=== PATIENT | male | born 1985 | race American Indian/Alaskan Native ===

== ENCOUNTER 2021-02-02 02:09 | Emergency (ER) | payer SELFPAY ==
[2021-02-02 02:20] VITALS: BP 127/75
[2021-02-02] MEDS ORDERED: predniSONE 20 MG TAB PO ONE (03:51)
[2021-02-02] MEDS ORDERED: IPRATROPIUM/ALBUTEROL SULFATE 3 ML AMPUL.NEB IH ONE (03:51)
[2021-02-02] MEDS ORDERED: CETIRIZINE 10 MG TAB PO ONE (03:51)
--- NOTE | 2021-02-02 03:57 | Emergency Department Report ---
ED Shortness of Breath HPI - General Chief Complaint: Dyspnea/Respdistress Stated Complaint: WILLA Time Seen by Provider: 02/02/21 03:47 Source: patient Mode of arrival: Ambulatory Limitations: No Limitations - History of Present Illness Initial Comments: CC: "This pollen has been messing with me. I can not breathe at night." HPI: This is a 35 yo male with hx of marijuana use and childhood "bronchitis" who presents with wheezing, shortness of breath and cough for 2 days. Worse at night. Flonase and OTC sinus medication gave only mild relief. He does smoke marijuana. He denies fever, sputum production, cough. He just feels tight in his chest when he attempts to breathe. MD Complaint: shortness of breath, cough, "asthma attack" -: Gradual, days(s) (2 days) Severity: mild Consistency: intermittent Improves With: nothing Worsens With: nothing Known History Of: other ("bronchitis") Context: other (marijuana inhalation) Associated Symptoms: cough, other (wheezing) Treatments Prior to Arrival: other (OTC medications) - Related Data Previous Rx's Medication Instructions Recorded Last Taken Type Albuterol Mdi (or & Nicu Only) 2 puff IH QID PRN #8.5 gram 02/02/21 Unknown Rx [ProAir HFA Inhaler] Cetirizine HCl [ZyrTEC 10mg cap] 10 mg PO DAILY 30 Days #30 capsule 02/02/21 Unknown Rx Fluticasone [Flonase] 1 spray NS QDAY 30 Days #1 bottle 02/02/21 Unknown Rx Prednisone [predniSONE 10 mg 10 mg PO .TAPER #1 tab.ds.pk 02/02/21 Unknown Rx (6-Day Pack, 21 Tabs)] ED Review of Systems ROS: Stated complaint: WILLA Other details as noted in HPI Comment: All other systems reviewed and negative Constitutional: denies: chills, fever, malaise Respiratory: cough, shortness of breath, wheezing Cardiovascular: denies: chest pain Gastrointestinal: denies: abdominal pain, nausea, vomiting ED Past Medical Hx - Past Medical History Previous Medical History?: Yes Additional medical history: Bronchitis - Surgical History Past Surgical History?: No - Social History Smoking Status: Current Some Day Smoker Substance Use Type: Marijuana - Medications Home Medications: Home Medications Medication Instructions Recorded Confirmed Last Taken Type Albuterol Mdi (or & Nicu Only) 2 puff IH QID PRN #8.5 gram 02/02/21 Unknown Rx [ProAir HFA Inhaler] Cetirizine HCl [ZyrTEC 10mg cap] 10 mg PO DAILY 30 Days #30 capsule 02/02/21 Unknown Rx Fluticasone [Flonase] 1 spray NS QDAY 30 Days #1 bottle 02/02/21 Unknown Rx Prednisone [predniSONE 10 mg 10 mg PO .TAPER #1 tab.ds.pk 02/02/21 Unknown Rx (6-Day Pack, 21 Tabs)] ED Physical Exam - General Limitations: No Limitations General appearance: alert, in no apparent distress - Head Head exam: Present: atraumatic, normocephalic - Eye Eye exam: Present: normal appearance - ENT ENT exam: Present: mucous membranes moist - Neck Neck exam: Present: normal inspection, full ROM - Respiratory Respiratory exam: Present: normal lung sounds bilaterally. Absent: respiratory distress, wheezes, rales, rhonchi - Cardiovascular Cardiovascular Exam: Present: regular rate, normal rhythm, normal heart sounds. Absent: systolic murmur, diastolic murmur, rubs, gallop - GI/Abdominal GI/Abdominal exam: Present: soft, normal bowel sounds. Absent: distended, tenderness, guarding, rebound - Rectal Rectal exam: Present: deferred - Extremities Exam Extremities exam: Present: normal inspection - Neurological Exam Neurological exam: Present: alert, oriented X3 - Psychiatric Psychiatric exam: Present: normal affect, normal mood - Skin Skin exam: Present: warm, dry, intact, normal color. Absent: rash ED Course Vital Signs 02/02/21 02:18 Temperature 97.8 F Pulse Rate 68 Respiratory 16 Rate Blood Pressure 127/75 O2 Sat by Pulse 97 Oximetry ED Medical Decision Making - Medical Decision Making Diagnosis: Allergic bronchitis prescribe Zyrtec, prednisone, albuterol, Flonase. Patient received DuoNeb prednisone Zyrtec in the emergency department. Critical care attestation.: If time is entered above; I have spent that time in minutes in the direct care of this critically ill patient, excluding procedure time. ED Disposition Clinical Impression: Allergic bronchitis Disposition: DC-01 TO HOME OR SELFCARE Is pt being admited?: No Does the pt Need Aspirin: No Condition: Stable Instructions: Chronic Bronchitis (ED), Bronchospasm, Adult Prescriptions: Fluticasone [Flonase] 1 spray NS QDAY 30 Days #1 bottle Prednisone [predniSONE 10 mg (6-Day Pack, 21 Tabs)] 10 mg PO .TAPER #1 tab.ds.pk Albuterol Mdi (or & Nicu Only) [ProAir HFA Inhaler] 2 puff IH QID PRN #8.5 gram PRN Reason: Shortness Of Breath Cetirizine HCl [ZyrTEC 10mg cap] 10 mg PO DAILY 30 Days #30 capsule Referrals: RICARDO GRAY MD [Staff Physician] - 3-5 Days Forms: Work/School Release Form(ED)
== END 2021-02-02 04:38 | disposition home or self-care (01) ==
LOC: ED 02:09
DX: J45.909 Unspecified asthma, uncomplicated (principal); F12.90 Cannabis use, unspecified, uncomplicated; F17.200 Nicotine dependence, unspecified, uncomplicated; Z79.899 Other long term (current) drug therapy
CPT/HCPCS: 94640; 99282; J7512; 94644